=== PATIENT | female | born 1960 | race Caucasian/White ===

== ENCOUNTER 2017-06-11 09:32 | Day surgery (SDC) | payer OTHER ==
[2017-06-11] MEDS ORDERED: FENTAnyl 50 MCG/ML VIAL (11:04)
[2017-06-11] MEDS ORDERED: MIDAZOLAM 1 MG/ML 2 ML INJ (11:04)
== END 2017-06-11 14:48 | disposition home or self-care (01) ==
LOC: GIL 09:32
DX: Z12.11 Encounter for screening for malignant neoplasm of colon (principal); D12.2 Benign neoplasm of ascending colon; D12.5 Benign neoplasm of sigmoid colon; K29.70 Gastritis, unspecified, without bleeding; K64.8 Other hemorrhoids
CPT/HCPCS: 43239; 87081; 88305